=== PATIENT | female | born 1985 | race Caucasian/White ===

== ENCOUNTER 2018-10-10 07:40 | Emergency (ER) | payer OTHER ==
[~2018-10-10] VITALS: Ht 177.8 cm; Wt 176.0 kg
[2018-10-10 08:28] VITALS: BP 156/97
== END 2018-10-10 08:35 | disposition home or self-care (01) ==
LOC: ED 07:40
DX: S86.912A Strain of unspecified muscle(s) and tendon(s) at lower leg level, left leg, initial encounter (principal); M25.562 Pain in left knee; X58.XXXA Exposure to other specified factors, initial encounter; Y93.01 Activity, walking, marching and hiking; Y92.009 Unspecified place in unspecified non-institutional (private) residence as the place of occurrence of the external cause

== ENCOUNTER 2019-03-16 18:11 | Emergency (ER) | payer SELFPAY ==
[~2019-03-16] VITALS: Ht 177.8 cm; Wt 175.0 kg
[2019-03-16] MEDS ORDERED: BACTRIM DS1 TAB PO (18:28)
[2019-03-16 18:50] VITALS: BP 154/88
== END 2019-03-16 18:50 | disposition home or self-care (01) | DRG 607 ==
LOC: ED 18:11
DX: L72.9 Follicular cyst of the skin and subcutaneous tissue, unspecified (principal)